=== PATIENT | female | born 1995 | race Caucasian/White ===

== ENCOUNTER → 2018-09-25 10:52 | Outpatient (CLI) | payer BC, SELFPAY ==
[2018-09-25 11:00] LABS: Bacteria 0 SEEN /hpf (None Seen); Mucous, Urine 0 SEEN /hpf (<or=2+); White Blood Cells 0 SEEN /hpf (0-5)
[2018-09-25 12:37] LABS: Absolute Lymphocyte Count 1.73 X10^3/ul (0.83-4.51); Absolute Neutrophil Count 5.6 X10^3/uL (2.0-7.7); Basophil# 0.03 X10^3/uL; Basophil% 0.4 % (0-1); Eosinophil# 0.14 X10^3/uL; Eosinophils% 1.7 % (0-5); Hematocrit 37.5 % (37-47); Hemoglobin 13.5 g/dl (12.0-15.0); Lymphocyte # 1.73 X10^3/ul (4.0); Lymphocyte % 21.2 % (19-41); Mean Corpuscular Hgb 28.5 pg (27.0-32.0); Mean Corpuscular Volume 79.3 fL (81-99); Mean Platelet Vol. 10.7 fl (6.2-12.0); Monocyte# 0.62 X10^3/uL; Monocyte% 7.6 % (0-10); Neutrophil # 5.62 X10^3/uL (2.7-7.7); Neutrophil % 68.7 % (47-70); Platelet Count 330 K/mm3 (150-450); RBC Distribution Width CV 13.5 % (11.6-14.6); RBC Distribution Width SD 38.4 fl (35.1-43.9); Red Blood Count 4.73 M/mm3 (4.2-5.4); White Blood Count 8.2 K/mm3 (4.4-11.0)
[2018-09-25 12:40] LABS: Differential Indicated SCAN CRITERIA MET; POSITIVE COUNT NO; POSITIVE DIFFERENTIAL NO; POSITIVE MORPHOLOGY YES
[2018-09-25 12:56] LABS: Color, Urine Yellow (Yellow); Glucose, Dipstick 1000 mg/dl (Normal); Ketone-Dipstick 5 mg/dl (Negative); Leukocyte Esterase-Dipstick Negative /ul (Negative); Nitrite-Dipstick Negative (Negative); Occult Blood-Urine 10 /ul (Negative); Protein-Dipstick 100 mg/dl (Negative); Urine Bilirubin Dipstick Negative (Negative); Urine Clarity Sl. Cloudy (Clear); Urine Urobilinogen Normal (Normal)
[2018-09-25 12:59] LABS: Hemoglobin A1c 10.9 % (4.2-6.3)
[2018-09-25 13:03] LABS: Microcytosis 1+; Squamous Epithelial Cells - UA 0-5 SEEN /hpf (5-10)
[2018-09-25 13:04] LABS: Atypical Lymphocyte 1+ %; Red Blood Cells-Urine 0-5 SEEN /hpf (0-5)
[2018-09-25 13:18] LABS: Vitamin D,25 Hydroxy 6.8 ng/mL (29.95-100.01)
[2018-09-25 13:37] LABS: Microalbumin:Creatinine Ratio 1057.8 mg/g CRE (<30 mg/g CRE)
[2018-09-25 13:58] LABS: ALB/GLOB Ratio 0.7 RATIO (0.9-2.4); AST(SGOT) 112 U/L (15-37); Alanine Aminotransfer ALT/SGPT 93 U/L (13-56); Albumin, Serum 3.4 g/dL (3.2-5.0); Alkaline Phosphatase 71 U/L (45-117); Anion Gap 14 (5-15); BUN 12 mg/dL (7-18); BUN/Creat Ratio 17.7 RATIO (10-20); Calcium,Total 8.6 mg/dL (8.5-10.1); Chloride 96 mmol/L (98-107); Cholesterol 424 mg/dL (200); Creatinine, Serum 0.68 mg/dL (0.55-1.02); EST Glomerular Filtration Rate 117 mL/min (>60); Est Glom Filt Rate - Afr Amer 141 mL/min (>60); Globulin 4.8 g/dL (2.2-4.2); Glucose 261 mg/dL (74-106); High Density Lipoprotein 28 mg/dL; Potassium 3.7 mmol/L (3.5-5.1); Protein, Total 8.2 g/dL (6.4-8.2); Sodium Level 133 mmol/L (136-145); T4 Free Direct 0.99 ng/dL (0.76-1.46); Thyroid Stim Hormone (TSH) 1.29 uIU/mL (0.358-3.74); Triglycerides > 4000 mg/dL
[2018-09-27 07:39] LABS: Anti-Thyroglobulin AB < 1.0 IU/mL (0.0-0.9); Thyroglobulin, Serum Qt. 15.5 ng/mL (1.5-38.5); Thyroid Peroxidase AB 21 IU/mL (0-34)
--- OUTSIDE RECORDS SUMMARY | 2018-11-11 11:53 | XMS RPT_ITS ---
:1995 Author Organization [facility] Care Team Providers Name Role Phone Bahman Gilliam Attending Unavailable Bahman Gilliam Primary Care Unavailable Bahman Gilliam Attending Unavailable Bahman Gilliam Referring Unavailable Bahman Gilliam Primary Care Unavailable Bahman Gilliam Attending Unavailable Bahman Gilliam Primary Care Unavailable Bahman Gilliam Attending Unavailable Bahman Gilliam Referring Unavailable Bahman Gilliam Primary Care Unavailable PROBLEMS PROBLEMS DATE TYPE CONDITION / CODE ATTENDING STATUS SOURCE 10/11/2018 Unknown R71.8 - Other Bahman Gilliam abnormality of E [facility] red blood cells / Hospital R71.8(ICD-10) Repository PROCEDURES PROCEDURES No Procedure Records FoundRESULTS RESULTS GASTRIC EMPTYING Observed: 10/05/2018 Status: F Source: [place] ST[place] 10:03 AM [facility] REPOSITORY [facility] Imaging Services [address] [place] [address] Gastric Emptying Study MR#: [id number] Acct: [id number] Name: TONIA CERVANTES Rep #: [id number] : 1995 F 22 From: Miguelangel Elias DO PCP: Bahman Gilliam MD Status: REG CLI Study: Gastric Emptying Study Date of Exam: 10/05/18 Exam# [id number] Ordering Dr: Bahman Gilliam MD CLINICAL: 22-year-old diabetic female with reported history of abdominal pain. SEMI-SOLID PHASE 99m Tc SULFUR COLLOID GASTRIC EMPTYING STUDY COMPARISON: None available FINDINGS: The patient was administered 1.1 mCi of 99m Tc sulfur colloid mixed with oatmeal and consumed per os. Image acquisitions in the anterior-posterior projections for a total of 60 minutes. There is prompt visualization of the stomach. There is no gastroesophageal reflux identified. First order kinetics are maintained throughout the duration of the acquisitions. The T1/2 linear fit was calculated to be 78.44 minutes, (Normal: 12-56 minutes). NM/Gastric Emptying Study IMPRESSION: 1. ABNORMAL 99m Tc sulfur colloid semi-solid phase (oatmeal) gastric emptying imaging examination. A. There is delayed semi-solid phase gastric emptying compared to normal controls. (Mony souza al, J Nucl Med Tech 38: 186, 2010). Electronically Signed: Miguelangel Elias DO at 22:06 EST Tel , Service support , CC: Bahman Gilliam MD Parking Lot Supervisor: Signed THYROID Observed: 09/29/2018 Status: F Source: [place] 9:00 AM [facility] REPOSITORY [facility] Imaging Services [address] [place] [address] Thyroid MR#: [id number] Acct: [id number] Name: TONIA CERVANTES Rep #: [id number] : 1995 F 22 From: Zackery Robbins MD PCP: Bahman Gilliam MD Status: REG CLI Study: Thyroid Date of Exam: 09/29/18 Exam# [id number] Ordering Dr: Bahman Gilliam MD STUDY: THYROID ULTRASOUND REASON FOR EXAM: Female, 22 years old. Thyroid enlargement TECHNIQUE: Ultrasound evaluation of the thyroid was performed with real-time and static perkins-scale imaging. COMPARISON: None. FINDINGS: RIGHT LOBE: The right lobe of the thyroid gland measures 4.4 x 1.5 x 1.6 cm. There is a homogeneous echotexture. There are no demonstrated solid, cystic or complex lesions. LEFT LOBE: The left lobe of the thyroid gland measures 4.1 x 1.6 x 0.9 cm. There is a homogeneous echotexture. There are no demonstrated solid, cystic or complex lesions. ISTHMUS: The isthmus measures 3.0 mm. Round, smoothly marginated hypoechoic nodule of the isthmus measures 6 mm without detectable microcalcifications or vascular flow. The regional lymph nodes are normal. US/Thyroid IMPRESSION: 1. Solitary 6 mm hypoechoic nodule the isthmus without suspicious sonographic features. Follow-up ultrasound in 6-12 months recommended. Electronically Signed: Zackery Robbins MD at 9:14 EST , Service support , CC: Bahman Gilliam MD Parking Lot Supervisor: Signed IRON BINDING Collected: 09/28/2018 Status: F Source: [facility] 8:44 AM [facility] REPOSITORY TYPE CODE TESTS RESULT OUT OF RANGE REFERENCE UNITS LAB L503.6075 250-450 ug/dL Normal TIBC 373 Result Comment: Slight Hemolysis, Result may be falsely increased. Performed By: #### L503.6075, L503.6150, L503.6550 #### [facility] [address] [place], [place], [address] IRON Collected: 09/28/2018 Status: F Source: [place] 8:44 AM [facility] REPOSITORY TYPE CODE TESTS RESULT OUT OF RANGE REFERENCE UNITS LAB L503.6150 50-170 ug/dL Normal IRON 85 Result Comment: Slight Hemolysis, Result may be falsely increased. Performed By: #### L503.6075, L503.6150, L503.6550 #### [facility] [address] [facility] [place], [address] FERRITIN Collected: 09/28/2018 Status: F Source: [place] 8:44 AM [facility] REPOSITORY TYPE CODE TESTS RESULT OUT OF REFERENCE UNITS RANGE LAB L503.6550 8-252 ng/mL High FERRITIN 475 Performed By: #### L503.6075, L503.6150, L503.6550 #### [facility] [address] [place], [address] INSULIN Collected: 09/28/2018 Status: F Source: [place] 8:44 AM [facility] REPOSITORY TYPE CODE TESTS RESULT OUT OF RANGE REFERENCE UNITS LAB [id number] 2.6-37.6 mU/L Normal Insulin 15.2 Result Comment: Please Note: INSULIN METHOD AND REFERENCE RANGE CHANGE Effective 10/26/2017. Performed By: #### [id number] #### [facility] [address] [facility] [place], [address] CBC W/DIFF, AUTOMATED Collected: 09/25/2018 Status: F Source: [place] 10:58 AM [facility] REPOSITORY TYPE CODE TESTS RESULT OUT OF RANGE REFERENCE UNITS LAB L100.1000 4.4-11.0 K/mm3 Normal WBC 8.2 LAB L100.1200 4.2-5.4 M/mm3 Normal RBC 4.73 LAB L100.1300 12.0-15.0 g/dl Normal HGB 13.5 LAB L100.1400 37-47 % Normal HCT 37.5 LAB L100.1500 81-99 fL Low MCV 79.3 LAB L100.1600 27.0-32.0 pg Normal MCH 28.5 LAB L100.1700 32-36 g/gl Normal MCHC 36.0 LAB L100.1810 11.6-14.6 % Normal RDW CV 13.5 LAB L100.1820 35.1-43.9 fl Normal RDW SD 38.4 LAB L100.1900 150-450 K/mm3 Normal PLT 330 LAB L100.2000 6.2-12.0 fl Normal MPV 10.7 LAB L100.2100 47-70 % Normal NEUT% 68.7 LAB L100.2200 19-41 % Normal LY% 21.2 LAB L100.2300 0-10 % Normal MONO% 7.6 LAB L100.2400 0-5 % Normal EO% 1.7 LAB L100.2500 0-1 % Normal BASO% 0.4 LAB L100.2550 0.0-0.9 % Normal IM GRAN % 0.400 Result Comment: IG% - Immature Granulocytes (promyelocytes, myelocytes and metamyelocytes) > 1% indicates that a LEFT SHIFT is Present. LAB L100.2620 2.0-7.7 X10 3/uL Absolute Normal Neut 5.6 LAB L100.2720 0.83-4.51 X10 3/ul Absolute Normal Lymph 1.73 LAB L100.4600 % ATYPICAL Normal LYMPH 1+ LAB L100.7700 Normal MICROCYTES 1+ Performed By: #### L100.0100, L501.9985, L506.1000, L502.0250, L500.4050, L500.4100, L501.9520, L506.0400 #### [facility] [address] [facility] [place], [place], [id number] HEMOGLOBIN A1C Collected: 09/25/2018 Status: F Source: [place] 10:58 AM [facility] REPOSITORY TYPE CODE TESTS RESULT OUT OF RANGE REFERENCE UNITS LAB L501.9985 4.2-6.3 % High HGB A1C 10.9 Performed By: #### L100.0100, L501.9985, L506.1000, L502.0250, L500.4050, L500.4100, L501.9520, L506.0400 #### [facility] [address] [place], [place], [address] VITAMIN D,25 HYDROXY Collected: 09/25/2018 Status: F Source: [place] 10:58 [facility] REPOSITORY Order Comment: SPECIMEN IS MARKEDLY LIPEMIC. ULTRACENTRIFUGATION TECHNIQUE USED FOR ANALYSIS. TYPE CODE TESTS RESULT OUT OF REFERENCE UNITS RANGE LAB L506.1000 29.95-100.01 ng/mL Low Vitamin D 6.8 25-OH Result Comment: Vitamin D 25(OH) Status Range Deficiency <20 ng/mL (50nmol/L) Insuffciency 20 - 30 ng/mL (50 - 75 nmol/L) Sufficiency 30 - 100 ng/mL (75 - 250 nmol/L) Toxicity >100 ng/mL (>250 nmol/L) Performed By: #### L100.0100, L501.9985, L506.1000, L502.0250, L500.4050, L500.4100, L501.9520, L506.0400 #### [facility] [address] [place], [address] MICROALB:CREAT Collected: 09/25/2018 Status: F Source: [place] [facility] 10:58 AM [facility] REPOSITORY TYPE CODE TESTS RESULT OUT OF RANGE REFERENCE UNITS LAB L501.1200 NO RANGE EST. mg/dL Normal UR CREAT 121.00 LAB L502.0500 NO RANGE EST. mg/L Normal 1280.0 MICROALBUMIN ,UR LAB L502.0600 <30 mg/g CRE mg/g CRE High 1057.8 MALB:CREAT Performed By: #### L100.0100, L501.9985, L506.1000, L502.0250, L500.4050, L500.4100, L501.9520, L506.0400 #### [facility] [address] [place], [address] COMPREHENSIVE METABOLIC Collected: 09/25/2018 Status: F Source: [place] 10:58 AM [facility] REPOSITORY Order Comment: SPECIMEN IS MARKEDLY LIPEMIC. ULTRACENTRIFUGATION TECHNIQUE USED FOR ANALYSIS. TYPE CODE TESTS RESULT OUT OF RANGE REFERENCE UNITS LAB L501.0100 74-106 mg/dL High GLU 261 Result Comment: Moderate Lipemia, Result may be falsely increased. Glucose result greater than or equal to 200 mg/dL suggests DIABETES MELLITUS per A.D.A. criteria. Please note revised GLUCOSE reference range effective 2017. LAB L501.1000 7-18 mg/dL Normal BUN 12 LAB L501.1100 0.55-1.02 mg/dL Normal CREAT,SERUM 0.68 Result Comment: The validity of the calculated GFR AND GFRAA in patients over 70 years has not been determined. Clinical correlation is essential. LAB L501.1110 >60 mL/min Normal EST GFR 117 Result Comment: Non- GFR Calc LAB L501.1115 >60 mL/min Normal EST GFR - AA 141 Result Comment: GFR Calc LAB L501.1300 10-20 RATIO Normal BUN/CRE 17.7 LAB L501.1500 6.4-8.2 g/dL T Normal PROT 8.2 LAB L501.1800 3.2-5.0 g/dL Normal ALB 3.4 LAB L501.1950 2.2-4.2 g/dL High GLOB 4.8 LAB L501.2000 0.9-2.4 RATIO Low A/G 0.7 LAB L501.2200 8.5-10.1 mg/dL CA Normal 8.6 LAB L501.4100 15-37 U/L High AST 112 LAB L501.4305 45-117 U/L Normal ALK P 71 LAB L501.4405 13-56 U/L High ALT 93 LAB L501.4600 0.20-1.00 mg/dL T Normal BILI 0.70 LAB L501.5300 136-145 mmol/L Low NA 133 LAB L501.5600 3.5-5.1 mmol/L K Normal 3.7 Result Comment: Moderate Hemolysis, Result may be falsely increased. LAB L501.5900 98-107 mmol/L Low CL 96 LAB L501.6100 21.0-32.0 mmol/L Normal CO2 23.0 LAB L501.6200 5-15 Normal GAP 14 Performed By: #### L100.0100, L501.9985, L506.1000, L502.0250, L500.4050, L500.4100, L501.9520, L506.0400 #### [facility] [address] [place], [place], [id number] LIPID PROFILE Collected: 09/25/2018 Status: F Source: [place] 10:58 AM [facility] REPOSITORY Order Comment: SPECIMEN IS MARKEDLY LIPEMIC. ULTRACENTRIFUGATION TECHNIQUE USED FOR ANALYSIS. TYPE CODE TESTS RESULT OUT OF RANGE REFERENCE UNITS LAB L501.4900 200 mg/dL High CHOL 424 Result Comment: <200 mg/dL Desirable 200-240 mg/dL Borderline >240 mg/dL High Risk LAB L501.5000 mg/dL High TRIG > 4000 Result Comment: The drugs N-Acetylcysteine and Metamizole may falsely depress this assay. Serum Triglycerides Reference Interval Normal <150 mg/dL Borderline high 150 - 199 mg/dL High 200 - 499 mg/dL Very High > or = 500 mg/dL LAB L501.6400 mg/dL Low HDL 28 Result Comment: The drugs N-Acetylcysteine and Metamizole may falsely depress this assay. Reference Range HDL <40 mg/dL Low HDL Cholesterol HDL >or= 60 mg/dL High HDL Cholesterol LAB L501.6500 0-130 mg/dL Test Normal not performed LDL LAB L501.6600 5-40 mg/dL Test Normal not performed VLDL Performed By: #### L100.0100, L501.9985, L506.1000, L502.0250, L500.4050, L500.4100, L501.9520, L506.0400 #### [facility] [address] [facility] [place], [place], [address] THYROID STIM HORMONE Collected: 09/25/2018 Status: F Source: [place] ([facility]) 10:58 AM [facility] REPOSITORY Order Comment: SPECIMEN IS MARKEDLY LIPEMIC. ULTRACENTRIFUGATION TECHNIQUE USED FOR ANALYSIS. TYPE CODE TESTS RESULT OUT OF RANGE REFERENCE UNITS LAB L501.9520 0.358-3.74 uIU/mL Normal TSH 1.29 Performed By: #### L100.0100, L501.9985, L506.1000, L502.0250, L500.4050, L500.4100, L501.9520, L506.0400 #### [facility] [address] [place], [place], [id number] T4 FREE DIRECT Collected: 09/25/2018 Status: F Source: [place] 10:58 AM [facility] REPOSITORY Order Comment: SPECIMEN IS MARKEDLY LIPEMIC. ULTRACENTRIFUGATION TECHNIQUE USED FOR ANALYSIS. TYPE CODE TESTS RESULT OUT OF RANGE REFERENCE UNITS LAB L506.0400 0.76-1.46 ng/dL Normal T4 FREE 0.99 DIRECT Performed By: #### L100.0100, L501.9985, L506.1000, L502.0250, L500.4050, L500.4100, L501.9520, L506.0400 #### [facility] [address] [place], [place], [address] URINALYSIS, COMPLETE Collected: 09/25/2018 Status: F Source: [place] 10:58 AM [facility] REPOSITORY Order Comment: How was Urine Obtained? CLEAN CATCH TYPE CODE TESTS RESULT OUT OF RANGE REFERENCE UNITS LAB L400.3000 Yellow COLOR Normal Yellow LAB L400.3050 Clear Normal CLARITY Sl. Cloudy LAB L400.3200 Normal mg/dl High GLUCOSE, UR 1000 LAB L400.3300 Negative mg/dL Normal BILIRUBIN URINE Negative LAB L400.3400 Negative mg/dl High 5 KETONE UR LAB L400.3465 1.002-1.030 Normal SP.GR. DIPSTX 1.020 LAB L400.3550 5.0 - 8.0 pH UR Normal 5.0 LAB L400.3600 Negative mg/dl High PROT DIPSTX 100 LAB L400.3700 Normal mg/dl Normal UROBILI Normal LAB L400.3750 Negative Normal NITRITE UR Negative LAB L400.3780 Negative /ul High 10 OCCULT BLOOD-UR LAB L400.3800 Negative /ul LEUK Normal ESTERASE Negative LAB L400.4050 0-5 /hpf WBC 0 Normal SEEN LAB L400.4100 0-5 /hpf Normal RBC-UA 0-5 SEEN LAB L400.4150 5-10 /hpf SQUAM Normal EPI 0-5 SEEN LAB L400.4300 None Seen /hpf 0 Normal BACTERIA SEEN LAB L400.4350 <or=2+ /hpf 0 Normal MUCUS, URINE SEEN Performed By: #### L400.0001 #### [facility] [address] [place], [place], [id number] THYROGLOBULIN W/ANTI-TG Collected: 09/25/2018 Status: F Source: [place] 10:58 AM [facility] REPOSITORY TYPE CODE TESTS RESULT OUT OF RANGE REFERENCE UNITS LAB L3300.7025 0.0-0.9 IU/mL Normal ANTI-TG < 1.0 AB Result Comment: Thyroglobulin Antibody measured by [facility] LAB L3400.1030 1.5-38.5 ng/mL Normal THYROGLOB 15.5 Result Comment: According to the National Academy of Clinical Biochemistry, the reference interval for Thyroglobulin (TG) should be related to euthyroid patients and not for patients who underwent thyroidectomy. TG reference intervals for these patients depend on the residual mass of the thyroid tissue left after surgery. Establishing a post-operative baseline is recommended. The assay limit of quantitation is 0.1 ng/mL Thyroglobulin measured by [facility] Assay Performed By: #### L3300.6820, L3300.6900 #### [facility] (refer to report for specific site) refer to report for address and phone number THYROID PEROXIDASE AB Collected: 09/25/2018 Status: F Source: [place] 10:58 AM [facility] REPOSITORY TYPE CODE TESTS RESULT OUT OF RANGE REFERENCE UNITS LAB L3300.6900 0-34 IU/mL Normal TPO AB 21 6676 Result Comment: Performed at: [address] [id number] Fiber Machine Tender: Mandeep Brown PhD, Phone: [phone] Performed By: #### L3300.6820, L3300.6900 #### [facility] (refer to report for specific site) refer to report for address and phone number ALLERGIES ALLERGIES No Allergies Records FoundENCOUNTERS ENCOUNTERS ADMIT/DISCHARGE ACCOUNT ADMITTING ENCOUNTER LOCATION SOURCE NUMBER CLASS 10/05/2018 [id number] Amb[place] [facility] ing:[place] Repository 09/29/2018 [id number] Ambulatory [facility] ing: Repository 09/28/2018 [id number] [place] [facility] ing:MFPLAB Repository 09/25/2018 [id number] Ambulatory [facility] ing:MFPLAB Repository PAYERS PAYERS ENCOUNTER GUARANTOR PAYER SUBSCRIBER SOURCE 10/05/2018 [facility]HEMPolic [facility] [employer] [facility] y Number[facility] [id number] [facility] [place] [id number] Repository [address]Zzr: [phone]) Date:5083-69-58YA [phone] () AJIT ZAPATA [address]GT: 10/05/2018 Secondary NOT GIVENUNK [place] Insurance:SELF PAY [facility] Number: Effective Repository Date:2018-10-03 09/29/2018 TONIA Ward Primary STEVEN Haynes [id number] Insurance:ANTHEMPolic MILLINESDOB: Community PRETTY LNAPT y Number: [id number] [id number] Repository [address]Gkr: ([phone]) Date:0538-50-53TV [phone] () [id number] GAY [address]WS: 09/29/2018 Secondary NOT GIVENUNK [place] Insurance:SELF PAY [facility] Number: Effective Repository Date:2018-09-25 09/28/2018 TONIA Ward Primary STEVEN [place] [id number] Insurance:ANTHEMPolic MILLINESDOB: Community PRETTY LNAPT y Number: [id number] [id number] Repository [address]Oaz: ([phone]) Date:8727-88-75PQ [phone] () AJIT ZAPATA [address]GE: 09/28/2018 Secondary NOT GIVENUNK [place] Insurance:SELF PAY [facility] Number: Effective Repository Date:2018-09-28 09/25/2018 Tonia Primary STEVEN Haynes [id number] Insurance:ANTHEMPolic MILLINESUNK Community Pretty y Number: [place], [place] [id number] Repository [address]Kiq: [phone]) Date:3549-07-26KH [phone] () [id number] GAY [address]846XT: 09/25/2018 Secondary NOT GIVENUNK [place] Insurance:SELF PAY [facility] Number: Effective Repository Date:2018-09-25
== END ==
PROVIDERS: Family Provider Family Medicine; PCP Family Medicine; Visit Provider Family Medicine
DX: I10 Essential (primary) hypertension (principal); E11.9 Type 2 diabetes mellitus without complications; E01.0 Iodine-deficiency related diffuse (endemic) goiter; E78.5 Hyperlipidemia, unspecified; E55.9 Vitamin D deficiency, unspecified
CPT/HCPCS: 36415; 80053; 80061; 81001; 82043; 82306; 82570; 83036; 84432; 84439; 84443; 85025; 86376; 86800

== ENCOUNTER → 2018-09-28 08:42 | Outpatient (CLI) | payer BC, SELFPAY ==
[2018-09-28 11:12] LABS: Ferritin 475 ng/mL (8-252); Iron 85 ug/dL (50-170); Iron Binding Capacity,Total 373 ug/dL (250-450)
[2018-09-28 15:15] LABS: Insulin 15.2 mU/L (2.6-37.6)
--- OUTSIDE RECORDS SUMMARY | 2018-11-13 21:14 | XMS RPT_ITS ---
[...] Status: F Source: [place] ST[place] 10:03 AM [facility] REPOSITORY Imaging Services [address] [place] [address] Gastric Emptying Study MR#: [id number] Acct: [id number] Name: TONIA CERVANTES Rep #: [id number] : 1995 F 22 From: Miguelangel Elias DO PCP: Bahman Gilliam MD Status: REG CLI Study: Gastric Emptying Study Date of Exam: 10/05/18 Exam# [id number] Ordering Dr: Bahman Gilliam MD CLINICAL: 22-year-old [...] Service support , CC: Bahman Gilliam MD Social Work Job Titles: Signed THYROID Observed: 09/29/2018 Status: F Source: [place] 9:00 AM [facility] REPOSITORY Imaging Services [address] [place] [address] Thyroid MR#: [id number] Acct: [id number] Name: TONIA CERVANTES Rep #: [id number] : 1995 F 22 From: Zackery Robbins MD PCP: Bahman Gilliam MD Status: REG CLI Study: Thyroid Date of Exam: 09/29/18 Exam# [id number] Ordering Dr: Bahman Gilliam MD STUDY: THYROID [...] Service support , CC: Bahman Gilliam MD Social Work Job Titles: Signed IRON BINDING Collected: 09/28/2018 Status: F Source: [facility],TOTAL 8:44 AM [facility] REPOSITORY TYPE CODE TESTS RESULT OUT OF RANGE REFERENCE UNITS LAB L503.6075 250-450 ug/dL Normal TIBC 373 Result Comment: Slight Hemolysis, Result may be falsely increased. Performed By: #### L503.6075, L503.6150, L503.6550 #### [facility] [address] [place], [place], [address] IRON Collected: 09/28/2018 Status: F Source: [place] 8:44 AM [facility] REPOSITORY TYPE CODE TESTS RESULT OUT OF RANGE REFERENCE UNITS LAB L503.6150 50-170 ug/dL Normal IRON 85 Result Comment: Slight Hemolysis, Result may be falsely increased. Performed By: #### L503.6075, L503.6150, L503.6550 #### [facility] [address] [place], [address] FERRITIN Collected: 09/28/2018 Status: F Source: [place] 8:44 AM [facility] REPOSITORY TYPE CODE TESTS RESULT OUT OF REFERENCE UNITS RANGE LAB L503.6550 8-252 ng/mL High FERRITIN 475 Performed By: #### L503.6075, L503.6150, L503.6550 #### [facility] [address] [place], [address] INSULIN Collected: 09/28/2018 Status: F Source: [place] 8:44 AM [facility] REPOSITORY TYPE CODE TESTS RESULT OUT OF RANGE REFERENCE UNITS LAB [id number] 2.6-37.6 mU/L Normal Insulin 15.2 Result Comment: Please Note: INSULIN METHOD AND REFERENCE RANGE CHANGE Effective 10/26/2017. Performed By: #### [id number] #### [facility] [address] [place], [address] CBC W/DIFF, AUTOMATED Collected: 09/25/2018 Status: F Source: [place] 10:58 AM [facility] REPOSITORY TYPE CODE TESTS RESULT OUT OF [...] L506.1000, L502.0250, L500.4050, L500.4100, L501.9520, L506.0400 #### [facility] [address] [place], [place], [address] HEMOGLOBIN A1C Collected: 09/25/2018 Status: F Source: [place] 10:58 AM [facility] REPOSITORY TYPE CODE TESTS RESULT OUT OF RANGE REFERENCE UNITS LAB L501.9985 4.2-6.3 % High HGB A1C 10.9 Performed By: #### L100.0100, L501.9985, L506.1000, L502.0250, L500.4050, L500.4100, L501.9520, L506.0400 #### [facility] [address] [place], [place], [address] VITAMIN D,25 HYDROXY Collected: 09/25/2018 Status: F Source: [place] 10:58 [facility] REPOSITORY Order Comment: SPECIMEN IS MARKEDLY LIPEMIC. [...] L506.1000, L502.0250, L500.4050, L500.4100, L501.9520, L506.0400 #### [facility] [address] [place], [address] MICROALB:CREAT Collected: 09/25/2018 Status: F Source: [place] [facility] 10:58 AM [facility] REPOSITORY TYPE CODE TESTS RESULT OUT OF RANGE REFERENCE UNITS LAB L501.1200 NO RANGE EST. mg/dL Normal UR CREAT 121.00 LAB L502.0500 NO RANGE EST. mg/L Normal 1280.0 MICROALBUMIN ,UR LAB L502.0600 <30 mg/g CRE mg/g CRE High 1057.8 MALB:CREAT Performed By: #### L100.0100, L501.9985, L506.1000, L502.0250, L500.4050, L500.4100, L501.9520, L506.0400 #### [facility] [address] [place], [address] COMPREHENSIVE METABOLIC Collected: 09/25/2018 Status: F Source: [place] PROFIL 10:58 AM [facility] REPOSITORY Order Comment: SPECIMEN IS MARKEDLY LIPEMIC. [...] L506.1000, L502.0250, L500.4050, L500.4100, L501.9520, L506.0400 #### [facility] [address] [place], [place], [address] LIPID PROFILE Collected: 09/25/2018 Status: F Source: [place] 10:58 AM [facility] REPOSITORY Order Comment: SPECIMEN IS MARKEDLY LIPEMIC. [...] L506.1000, L502.0250, L500.4050, L500.4100, L501.9520, L506.0400 #### [facility] [address] [place], [place], [address] THYROID STIM HORMONE Collected: 09/25/2018 Status: F Source: [place] (TSH) 10:58 AM [facility] REPOSITORY Order Comment: SPECIMEN IS MARKEDLY LIPEMIC. ULTRACENTRIFUGATION TECHNIQUE USED FOR ANALYSIS. TYPE CODE TESTS RESULT OUT OF RANGE REFERENCE UNITS LAB L501.9520 0.358-3.74 uIU/mL Normal TSH 1.29 Performed By: #### L100.0100, L501.9985, L506.1000, L502.0250, L500.4050, L500.4100, L501.9520, L506.0400 #### [facility] [address] [place], [place], [address] T4 FREE DIRECT Collected: 09/25/2018 Status: F Source: [place] 10:58 AM [facility] REPOSITORY Order Comment: SPECIMEN IS MARKEDLY LIPEMIC. ULTRACENTRIFUGATION TECHNIQUE USED FOR ANALYSIS. TYPE CODE TESTS RESULT OUT OF RANGE REFERENCE UNITS LAB L506.0400 0.76-1.46 ng/dL Normal T4 FREE 0.99 DIRECT Performed By: #### L100.0100, L501.9985, L506.1000, L502.0250, L500.4050, L500.4100, L501.9520, L506.0400 #### [facility] [address] [place], [place], [address] URINALYSIS, COMPLETE Collected: 09/25/2018 Status: F Source: [place] 10:58 AM [facility] REPOSITORY Order Comment: How was Urine Obtained? [...] URINE SEEN Performed By: #### L400.0001 #### [facility] [address] [place], [place], [address] THYROGLOBULIN W/ANTI-TG Collected: 09/25/2018 Status: F Source: [place] AB 10:58 AM [facility] REPOSITORY TYPE CODE TESTS RESULT OUT OF RANGE REFERENCE UNITS LAB L3300.7025 0.0-0.9 IU/mL Normal ANTI-TG < 1.0 AB Result Comment: Thyroglobulin Antibody measured by [employer] [place] Methodology LAB L3400.1030 1.5-38.5 ng/mL Normal THYROGLOB [...] 09/25/2018 Status: F Source: [place] 10:58 AM [facility] REPOSITORY TYPE CODE TESTS RESULT OUT OF RANGE REFERENCE UNITS LAB L3300.6900 0-34 IU/mL Normal TPO AB 21 6676 Result Comment: Performed at: [address] [id number] Dirt Bike Racer: Mandeep Brown PhD, Phone: [phone] Performed By: #### L3300.6820, L3300.6900 #### [facility] (refer to report for specific site) refer to report for address and phone number ALLERGIES ALLERGIES No Allergies Records FoundENCOUNTERS ENCOUNTERS ADMIT/DISCHARGE ACCOUNT ADMITTING ENCOUNTER LOCATION SOURCE NUMBER CLASS 10/05/2018 [id number] [place] [facility] ing:[place] Repository 09/29/2018 [id number] Ambulatory [facility] 5 [facility] ing: Repository 09/28/2018 [id number] Ambulatory [place] 4 [facility] ing:MFPLAB Repository 09/25/2018 [id number] Ambulatory [facility] 4 [facility] ing:MFPLAB Repository PAYERS PAYERS ENCOUNTER GUARANTOR PAYER SUBSCRIBER SOURCE 10/05/2018 [facility]ANTHEMPolic [facility] [employer] [facility] y Number: [id number] [facility] [place] [id number] Repository [address]Kxz: [phone]) Date:7821-06-17RA [phone] () AJIT [place]AP[place] [address]JZ: 10/05/2018 Secondary NOT GIVENUNK [place] Insurance:SELF PAY [facility] Number: Effective Repository Date:2018-10-03 09/29/2018 TONIA Ward Primary STEVEN Haynes [id number] Insurance:ANTHEMPolic MILLINESDOB: Community PRETTY LNAPT y Number: [id number] [id number] Repository [address]Wsa: (225) Date:6287-29-01GX [phone] () [id number] GAY [address]FG: 09/29/2018 Secondary NOT GIVENUNK [place] Insurance:SELF PAY Community [facility] Number: Effective Repository Date:2018-09-25 09/28/2018 TONIA Ward Primary STEVEN Ordoñezoster [id number] Insurance:ANTHEMPolic MILLINESDOB: Community PRETTY LNAPT y Number: [id number] [id number] Repository [address]Krj: (225) Date:4157-60-35KN [phone] () AJIT [place] [address]ZD: 09/28/2018 Secondary NOT GIVENUNK [place] Insurance:SELF PAY Community [facility] Number: Effective Repository Date:2018-09-28 09/25/2018 Tonia Primary STEV[address] [id number] Insurance:ANTHEMPolic MILLINESUNK Community Pretty y Number: [place], [place] [id number] Repository [address]Xmi: (225) Date:3305-58-30HW [phone] () [id number] GAY [address]YV: 09/25/2018 Secondary NOT GIVENUNK [place] Insurance:SELF PAY Community [facility] Number: Effective Repository Date:2018-09-25
== END ==
PROVIDERS: Family Provider Family Medicine; PCP Family Medicine; Visit Provider Family Medicine
DX: R71.8 Other abnormality of red blood cells (principal)
CPT/HCPCS: 36415; 82728; 83525; 83540; 83550

== ENCOUNTER → 2018-09-29 08:54 | Outpatient (CLI) | payer BC, SELFPAY ==
--- NOTE | 2018-09-29 09:00 | US_ITS ---
STUDY: THYROID ULTRASOUND REASON FOR EXAM: Female, 22 years old. Thyroid enlargement TECHNIQUE: Ultrasound evaluation of the thyroid was performed with real-time and static perkins-scale imaging. COMPARISON: None. FINDINGS: RIGHT LOBE: The right lobe of the thyroid gland measures 4.4 x 1.5 x 1.6 cm. There is a homogeneous echotexture. There are no demonstrated solid, cystic or complex lesions. LEFT LOBE: The left lobe of the thyroid gland measures 4.1 x 1.6 x 0.9 cm. There is a homogeneous echotexture. There are no demonstrated solid, cystic or complex lesions. ISTHMUS: The isthmus measures 3.0 mm. Round, smoothly marginated hypoechoic nodule of the isthmus measures 6 mm without detectable microcalcifications or vascular flow. The regional lymph nodes are normal. US/Thyroid IMPRESSION: 1. Solitary 6 mm hypoechoic nodule the isthmus without suspicious sonographic features. Follow-up ultrasound in 6-12 months recommended. Electronically Signed: Zackery Robbins MD at 9:14 EST , Service support ,
--- OUTSIDE RECORDS SUMMARY | 2019-01-02 09:05 | XMS RPT_ITS ---
[...] Status: F Source: [place] ST[place] 10:03 AM [facility] REPOSITORY [facility] Imaging Services [address] [place] [address] Gastric Emptying Study MR#: [id number] Acct: [id number] Name: TONIA CERVANTES Rep #: [id number] : 1995 F 22 From: Miguelangel Elias DO PCP: Bahman Gilliam MD Status: REG CLI Study: Gastric Emptying Study Date of Exam: 10/05/18 Exam# [id number] Ordering Dr: Bahman Gilliam MD CLINICAL: 22-year-old [...] Service support , CC: Bahman Gilliam MD Swimming Pool Cleaner: Signed THYROID Observed: 09/29/2018 Status: F Source: [place] 9:00 AM [facility] Imaging Services [address] [place] [address] Thyroid MR#: [id number] Acct: [id number] Name: TONIA CERVANTES Rep #: [id number] : 1995 F 22 From: Zackery Robbins MD PCP: Bahman Gilliam MD Status: REG CLI Study: Thyroid Date of Exam: 09/29/18 Exam# [id number] Ordering Dr: Bahman Gilliam MD STUDY: THYROID [...] Service support , CC: Bahman Gilliam MD Swimming Pool Cleaner: Signed IRON BINDING Collected: 09/28/2018 Status: F Source: [facility],TOTAL 8:44 AM [facility] TYPE CODE TESTS RESULT OUT OF RANGE REFERENCE UNITS LAB L503.6075 250-450 ug/dL Normal TIBC 373 Result Comment: Slight Hemolysis, Result may be falsely increased. Performed By: #### L503.6075, L503.6150, L503.6550 #### [facility] [address] [place], [place], [address] IRON Collected: 09/28/2018 Status: F Source: [place] 8:44 AM [facility] TYPE CODE TESTS RESULT OUT OF RANGE REFERENCE UNITS LAB L503.6150 50-170 ug/dL Normal IRON 85 Result Comment: Slight Hemolysis, Result may be falsely increased. Performed By: #### L503.6075, L503.6150, L503.6550 #### [facility] [address] [facility] [place], [address] FERRITIN Collected: 09/28/2018 Status: F Source: [place] 8:44 AM [facility] TYPE CODE TESTS RESULT OUT OF REFERENCE UNITS RANGE LAB L503.6550 8-252 ng/mL High FERRITIN 475 Performed By: #### L503.6075, L503.6150, L503.6550 #### [facility] [address] [place], [address] INSULIN Collected: 09/28/2018 Status: F Source: [place] 8:44 AM [facility] TYPE CODE TESTS RESULT OUT OF RANGE REFERENCE UNITS LAB [id number] 2.6-37.6 mU/L Normal Insulin 15.2 Result Comment: Please Note: INSULIN METHOD AND REFERENCE RANGE CHANGE Effective 10/26/2017. Performed By: #### [id number] #### [facility] [address] [facility] [place], [address] CBC W/DIFF, AUTOMATED Collected: 09/25/2018 Status: F Source: [place] 10:58 AM [facility] TYPE CODE TESTS RESULT OUT OF [...] L506.1000, L502.0250, L500.4050, L500.4100, L501.9520, L506.0400 #### [facility] [address] [facility]. [place], [place], [address] HEMOGLOBIN A1C Collected: 09/25/2018 Status: F Source: [place] 10:58 AM [facility] TYPE CODE TESTS RESULT OUT OF RANGE REFERENCE UNITS LAB L501.9985 4.2-6.3 % High HGB A1C 10.9 Performed By: #### L100.0100, L501.9985, L506.1000, L502.0250, L500.4050, L500.4100, L501.9520, L506.0400 #### [facility] [address] [place], [place], [address] VITAMIN D,25 HYDROXY Collected: 09/25/2018 Status: F Source: [place] [facility] Order Comment: SPECIMEN IS MARKEDLY [...] L506.1000, L502.0250, L500.4050, L500.4100, L501.9520, L506.0400 #### [facility] [address] [place], [address] MICROALB:CREAT Collected: 09/25/2018 Status: F Source: [place] [facility] [place] 10:58 AM [facility] TYPE CODE TESTS RESULT OUT OF RANGE REFERENCE UNITS LAB L501.1200 NO RANGE EST. mg/dL Normal UR CREAT 121.00 LAB L502.0500 NO RANGE EST. mg/L Normal 1280.0 MICROALBUMIN ,UR LAB L502.0600 <30 mg/g CRE mg/g CRE High 1057.8 MALB:CREAT Performed By: #### L100.0100, L501.9985, L506.1000, L502.0250, L500.4050, L500.4100, L501.9520, L506.0400 #### [facility] [address] [place], [address] COMPREHENSIVE METABOLIC Collected: 09/25/2018 Status: F Source: [place] PROFIL 10:58 AM [facility] Order Comment: SPECIMEN IS MARKEDLY LIPEMIC. [...] L506.1000, L502.0250, L500.4050, L500.4100, L501.9520, L506.0400 #### [facility] [address] [place], [place], [address] LIPID PROFILE Collected: 09/25/2018 Status: F Source: [place] 10:58 AM [facility] Order Comment: SPECIMEN IS MARKEDLY LIPEMIC. [...] L506.1000, L502.0250, L500.4050, L500.4100, L501.9520, L506.0400 #### [facility] [address] [facility]. [place], [place], [address] THYROID STIM HORMONE Collected: 09/25/2018 Status: F Source: [place] (TSH) 10:58 AM [facility] Order Comment: SPECIMEN IS MARKEDLY LIPEMIC. ULTRACENTRIFUGATION TECHNIQUE USED FOR ANALYSIS. TYPE CODE TESTS RESULT OUT OF RANGE REFERENCE UNITS LAB L501.9520 0.358-3.74 uIU/mL Normal TSH 1.29 Performed By: #### L100.0100, L501.9985, L506.1000, L502.0250, L500.4050, L500.4100, L501.9520, L506.0400 #### [facility] [address] [place], [place], [address] T4 FREE DIRECT Collected: 09/25/2018 Status: F Source: [place] 10:58 AM [facility] Order Comment: SPECIMEN IS MARKEDLY LIPEMIC. ULTRACENTRIFUGATION TECHNIQUE USED FOR ANALYSIS. TYPE CODE TESTS RESULT OUT OF RANGE REFERENCE UNITS LAB L506.0400 0.76-1.46 ng/dL Normal T4 FREE 0.99 DIRECT Performed By: #### L100.0100, L501.9985, L506.1000, L502.0250, L500.4050, L500.4100, L501.9520, L506.0400 #### [facility] [address] [place], [place], [address] URINALYSIS, COMPLETE Collected: 09/25/2018 Status: F Source: [place] 10:58 AM [facility] Order Comment: How was Urine Obtained? [...] URINE SEEN Performed By: #### L400.0001 #### [facility] [address] [place], [place], [address] THYROGLOBULIN W/ANTI-TG Collected: 09/25/2018 Status: F Source: [place] 10:58 AM [facility] TYPE CODE TESTS RESULT OUT OF RANGE REFERENCE UNITS LAB L3300.7025 0.0-0.9 IU/mL Normal ANTI-TG < 1.0 AB Result Comment: Thyroglobulin Antibody measured by [employer] [place] Methodology LAB L3400.1030 1.5-38.5 ng/mL Normal THYROGLOB [...] 09/25/2018 Status: F Source: [place] 10:58 AM [facility] TYPE CODE TESTS RESULT OUT OF RANGE REFERENCE UNITS LAB L3300.6900 0-34 IU/mL Normal TPO AB 21 6676 Result Comment: Performed at: [address] [id number] Member Of Congress: Mandeep Brown PhD, Phone: [phone] Performed By: #### L3300.6820, L3300.6900 #### [facility] (refer to report for specific site) refer to report for address and phone number ALLERGIES ALLERGIES No Allergies Records FoundENCOUNTERS ENCOUNTERS ADMIT/DISCHARGE ACCOUNT ADMITTING ENCOUNTER LOCATION SOURCE NUMBER CLASS 10/05/2018 [id number] [place] [facility] ing:[place] Repository 09/29/[id number] [facility] 5 [facility] ing: Repository 09/28/2018 [id number] Ambulatory [place] 4 [facility] ing:MFPLAB Repository 09/25/[id number] [facility] 4 [facility] ing:MFPLAB Repository PAYERS PAYERS ENCOUNTER GUARANTOR PAYER SUBSCRIBER SOURCE 10/05/2018 [facility]ANTHEMPolic [facility] [place] [facility] y Number: [id number] [place] [id number] Repository [address]Cqh: [phone]) Date:6242-94-77VM [phone] () AJIT [place]AP[place] [address]XJ: 10/05/2018 Secondary NOT GIVENUNK [place] Insurance:SELF PAY Community [facility] Number: Effective Repository Date:2018-10-03 09/29/2018 TONIA Ward Primary [address] [id number] Insurance:ANTHEMPolic MILLINESDOB: Community PRETTY LNAPT y Number: [id number] [id number] Repository [address]Bco: (225) Date:6134-50-53GV [phone] () [id number] GAY [address]BE: 09/29/2018 Secondary NOT GIVENUNK [place] Insurance:SELF PAY Community [facility] Number: Effective Repository Date:2018-09-25 09/28/2018 TONIA Ward Primary STEVEN Ordoñezoster [id number] Insurance:ANTHEMPolic MILLINESDOB: Community PRETTY LNAPT y Number: [id number] [id number] Repository [address]Zbt: (225) Date:0526-20-11XQ [phone] () AJIT [place] [address]BQ: 09/28/2018 Secondary NOT GIVENUNK [place] Insurance:SELF PAY Community [facility] Number: Effective Repository Date:2018-09-28 09/25/2018 Tonia Primary [address] [id number] Insurance:ANTHEMPolic MILLINESUNK Community Pretty y Number: [place], [place] [id number] Repository [address]Lfg: (225) Date:3170-08-60LC [phone] () [id number] GAY [address]VN: 09/25/2018 Secondary NOT GIVENUNK [place] Insurance:SELF PAY Community [facility] Number: Effective Repository Date:2018-09-25
== END ==
PROVIDERS: Family Provider Family Medicine; PCP Family Medicine; Referring Provider Family Medicine; Visit Provider Family Medicine
DX: E01.0 Iodine-deficiency related diffuse (endemic) goiter (principal)
CPT/HCPCS: 76536

== ENCOUNTER → 2018-10-05 09:55 | Outpatient (CLI) | payer BC, SELFPAY ==
--- NOTE | 2018-10-05 10:02 | NM_ITS ---
CLINICAL: 22-year-old diabetic female with reported history of abdominal pain. SEMI-SOLID PHASE 99m Tc SULFUR COLLOID GASTRIC EMPTYING STUDY COMPARISON: None available FINDINGS: The patient was administered 1.1 mCi of 99m Tc sulfur colloid mixed with oatmeal and consumed per os. Image acquisitions in the anterior-posterior projections for a total of 60 minutes. There is prompt visualization of the stomach. There is no gastroesophageal reflux identified. First order kinetics are maintained throughout the duration of the acquisitions. The T1/2 linear fit was calculated to be 78.44 minutes, (Normal: 12-56 minutes). NM/Gastric Emptying Study IMPRESSION: 1. ABNORMAL 99m Tc sulfur colloid semi-solid phase (oatmeal) gastric emptying imaging examination. A. There is delayed semi-solid phase gastric emptying compared to normal controls. (Mony et al, J Nucl Med Tech 38: 186, 2010). Electronically Signed: Miguelangel Elias DO at 22:06 EST Tel , Service support ,
== END ==
LOC: NM 09:57
PROVIDERS: Family Provider Family Medicine; PCP Family Medicine; Referring Provider Family Medicine; Visit Provider Family Medicine
DX: R68.81 Early satiety (principal)
CPT/HCPCS: 78264; A9541

== ENCOUNTER → 2019-03-01 07:49 | Outpatient (CLI) | payer BC, SELFPAY ==
--- NOTE | 2019-03-01 08:14 | US_ITS ---
STUDY: ABDOMINAL ULTRASOUND - RIGHT UPPER QUADRANT REASON FOR VISIT: Female, 23 years old. Fatty liver TECHNIQUE: Ultrasound evaluation of the right upper quadrant was performed with real-time and static perkins-scale imaging. TECHNICAL QUALITY: Adequate. COMPARISON: None. FINDINGS: Liver: The liver measures 21.1 cm. There is increased echogenicity consistent with fatty infiltration. The bile ducts are within normal limits. There is hepatic color flow. The direction of portal flow is hepatopetal. There is no demonstrated mass lesion. Gallbladder: Normal distended gallbladder. The gallbladder wall measures 2.7 mm. There is a negative sonographic Cavanaugh's sign. There is pericholecystic fluid. There are no gallstones. Common Bile Duct (C.B.D.): The common bile duct measures 2.7 mm. Pancreas: Normal size of the head, body and tail of the pancreas. There is normal echogenicity of the pancreas. There is no demonstrated pancreatic mass or cyst. Right Kidney: Normal size of the right kidney. The right kidney measures 12.2 x 6.2 x 5.5 cm. Normal renal cortex. The right cortex measures 1.6 cm. There is no demonstrated renal mass or cyst. There is no right hydronephrosis. US/Liver IMPRESSION: Hepatomegaly and fatty liver. Pericholecystic fluid. No gallstones are seen. Normal common bile duct. Electronically Signed: Tim Luciano MD at 20:05 EDT Tel , Service support ,
== END ==
LOC: US 07:52
PROVIDERS: Family Provider Family Medicine; PCP Family Medicine; Referring Provider Internal Medicine Endocrinology, Diabetes & Metabolism; Visit Provider Internal Medicine Endocrinology, Diabetes & Metabolism
DX: K76.0 Fatty (change of) liver, not elsewhere classified (principal)
CPT/HCPCS: 76705

== ENCOUNTER 2019-04-30 14:04 | Emergency (ER) | payer BC, SELFPAY ==
[2019-04-30 14:05] VITALS: BP 146/87; PULSE 98; RESP 16; TEMP 36.6; O2SAT 98; BMI 31.7
[2019-04-30 15:20] LABS: Absolute Lymphocyte Count 3.02 X10^3/uL (0.83-4.51); Absolute Neutrophil Count 5.4 X10^3/uL (2.0-7.7); Basophil# 0.04 X10^3/uL; Basophil% 0.4 % (0-1); Eosinophil# 0.13 X10^3/uL; Eosinophils% 1.4 % (0-5); Hematocrit 42.6 % (37-47); Hemoglobin 13.9 g/dL (12.0-15.0); Lymphocyte # 3.02 X10^3/ul (4.0); Lymphocyte % 32.9 % (19-41); Mean Corp Hgb Conc 32.6 g/dL (32-36); Mean Corpuscular Hgb 26.5 pg (27.0-32.0); Mean Corpuscular Volume 81.1 fL (81-99); Mean Platelet Vol. 10.1 fl (6.2-12.0); Monocyte% 6.5 % (0-10); NRBC Flagged by Analyzer 0 % (0-5); Neutrophil # 5.35 X10^3/uL (2.7-7.7); Neutrophil % 58.5 % (47-70); Platelet Count 302 K/mm3 (150-450); RBC Distribution Width CV 13.4 % (11.6-14.6); RBC Distribution Width SD 39.8 fl (35.1-43.9); Red Blood Count 5.25 M/mm3 (4.2-5.4); White Blood Count 9.2 K/mm3 (4.4-11.0)
[2019-04-30 15:40] LABS: ALB/GLOB Ratio 1.1 RATIO (0.9-2.4); AST(SGOT) 55 U/L (15-37); Alanine Aminotransfer ALT/SGPT 83 U/L (13-56); Albumin, Serum 4.3 g/dL (3.2-5.0); Alkaline Phosphatase 55 U/L (45-117); Anion Gap 6 (5-15); BUN 11 mg/dL (7-18); BUN/Creat Ratio 15.7 RATIO (10-20); Calcium,Total 9.6 mg/dL (8.5-10.1); Chloride 103 mmol/L (98-107); EST Glomerular Filtration Rate 112 mL/min (>60); Est Glom Filt Rate - Afr Amer 135 mL/min (>60); Glucose 124 mg/dL (74-106); Lipase 98 U/L (73-393); Potassium 3.9 mmol/L (3.5-5.1); Protein, Total 8.3 g/dL (6.4-8.2); Sodium Level 136 mmol/L (136-145)
--- NOTE | 2019-04-30 15:56 | ED.VIS.GI ---
History of Present Illness Chief Complaint: Abd Pain Informant: Patient - Abdominal Pain/Flank Pain Onset: Days - 4 Context: Gradual Onset Timing: Continuous, Waxes and wanes Quality: Aching Location: RUQ Current Severity: Moderate Maximum Severity: Moderate Worsened by: Food Relieved by: Nothing - Nausea/Vomiting/Emesis GI Symptom: Nausea, Vomiting Quality: Nonbilious. Negative for: Blood streaks, Coffee ground, Hematemesis Severity: Moderate - Diarrhea/Melena/Hematochezia GI Symptom: Diarrhea. Negative for: Melena, Hematochezia Stool Quality: Watery - yellow. Negative for: Black, Maroon, KORTNEY per rectum Severity: Severe Associated Symptoms: Negative for: Dysuria, Frequency, Hematuria, Urgency Narrative: Patient was sent by PCP for further work-up for possible pancreatitis given her symptoms, history of diabetes, and triglycerides over 4000. No history of prior abdominal surgeries. Recent Illness/Hospitalization: No - Past Medical History (1) IDDM (insulin dependent diabetes mellitus) Status: Chronic (2) Hypertriglyceridemia Status: Chronic Past Medical History - Allergies and Home Meds Allergies/Adverse Reactions: Allergies metformin Adverse Reaction (Verified 04/30/19 14:09) Upset Stomach Primary Care Physician: Bahman Gilliam MD [Primary Care Provider] - Surgical History: no surgical history Smoking Status: Never smoker Alcohol: Occasional - none in past several weeks Drugs: None Review of Systems General: Reports: Malaise. Denies: Chills, Fever, Sweats Eyes: Denies: Visual changes - bilaterally, Diplopia ENT: Denies: Rhinorrhea, Sore throat Cardiovascular: Denies: Chest pain, Palpitations Respiratory: Denies: Dyspnea, Cough, Dyspnea on exertion Gastrointestinal: Reports: Abdominal pain, Nausea, Vomiting, Diarrhea. Denies: Melena, Hematochezia Genitourinary: Denies: Dysuria, Hematuria, Frequency Musculoskeletal: Denies: Back pain, Extremity Pain Skin: Denies: Rash, Wounds Neurological: Denies: Headache, Weakness, Numbness Physical Exam Vital Signs/Narrative: Vital Signs Temp Pulse Resp BP Pulse Ox 04/30/19 14:05 97.8 F 98 16 146/87 H 98 Inital Vital Signs reviewed: Yes General: Well nourished, Well developed, No Acute Distress Head: Normocephalic, Atraumatic Eyes: Perrl, EOMI ENT: Moist mucous membranes, No rhinorrhea Neck: Supple, Nontender Cardiovascular: Regular rate, Regular rhythm, No murmurs, Normal S1, Normal S2 Respiratory: No distress, CTA bilaterally, Chest nontender Abdomen: Soft, Nondistended, Normal bowel sounds, Tender - RUQ > epigastric. Negative for: Guarding, Rebound tenderness, Cavanaugh's sign Back: Nontender, Normal Inspection. Negative for: CVA tenderness Extremities: Nontender, No edema. Negative for: Calf Tenderness Skin: Normal color, No rash, No Trauma Neurological: Alert, Oriented x3, Cranial nerves II-XII grossly intact, Normal Strength, Normal Sensation Psychological: Normal affect, Normal Mood Diagnostic/Tx/Re-eval Impressions Gallbladder Ultrasound 04/30/19 16:04 IMPRESSION: Liver is enlarged with fatty infiltration. No gallstones. Electronically Signed: Herbert Thapa MD at 16:48 EDT , Service support , 04/30/19 16:04 US Gallbladder [Gallbladder] [US] Stat Laboratory Results 04/30/19 04/30/19 04/30/19 15:00 15:00 15:00 WBC 9.2 RBC 5.25 Hgb 13.9 Hct 42.6 MCV 81.1 MCH 26.5 L MCHC 32.6 RDW Std Deviation 39.8 RDW Coeff of Mohini 13.4 Plt Count 302 MPV 10.1 Immature Gran % (Auto) 0.300 Neut % (Auto) 58.5 Lymph % (Auto) 32.9 [place] % (Auto) 6.5 Eos % (Auto) 1.4 Baso % (Auto) 0.4 Absolute Neuts (auto) 5.4 Absolute Lymphs (auto) 3.02 Absolute Nucleated RBC 0.00 Nucleated RBC % 0 Sodium 136 Potassium 3.9 Chloride 103 Carbon Dioxide 27.0 Anion Gap 6 BUN 11 Creatinine 0.70 Estim Creat Clear Calc 114.40 Est GFR (MDRD) Af Amer 135 Est GFR (MDRD) Non-Af 112 BUN/Creatinine Ratio 15.7 Glucose 124 H Calcium 9.6 Total Bilirubin 0.30 AST 55 H ALT 83 H Alkaline Phosphatase 55 Total Protein 8.3 H Albumin 4.3 Globulin 4.0 Albumin/Globulin Ratio 1.1 Lipase 98 Serum , Qual NEGATIVE Urine Color Urine Clarity Urine pH Ur Specific Sparks Urine Protein Urine Glucose (UA) Urine Ketones Urine Occult Blood Urine Nitrite Urine Bilirubin Urine Urobilinogen Ur Leukocyte Esterase Urine RBC Urine WBC Ur Squamous Epith Cells Urine Bacteria Urine Mucus 04/30/19 16:00 WBC RBC Hgb Hct MCV MCH MCHC RDW Std Deviation RDW Coeff of Mohini Plt Count MPV Immature Gran % (Auto) Neut % (Auto) Lymph % (Auto) [place] % (Auto) Eos % (Auto) Baso % (Auto) Absolute Neuts (auto) Absolute Lymphs (auto) Absolute Nucleated RBC Nucleated RBC % Sodium Potassium Chloride Carbon Dioxide Anion Gap BUN Creatinine Estim Creat Clear Calc Est GFR (MDRD) Af Amer Est GFR (MDRD) Non-Af BUN/Creatinine Ratio Glucose Calcium Total Bilirubin AST ALT Alkaline Phosphatase Total Protein Albumin Globulin Albumin/Globulin Ratio Lipase Serum , Qual Urine Color Straw Urine Clarity Clear Urine pH 6.0 Ur Specific Sparks 1.010 Urine Protein Negative Urine Glucose (UA) Normal Urine Ketones Negative Urine Occult Blood Negative Urine Nitrite Negative Urine Bilirubin Negative Urine Urobilinogen Normal Ur Leukocyte Esterase 25 H Urine RBC 0 SEEN Urine WBC 0-5 SEEN Ur Squamous Epith Cells 0-5 SEEN Urine Bacteria RARE Urine Mucus 0 SEEN - Medical Decision Making Patient is improved after morphine, IV fluids, Zofran. Initially was going to order a CT of the abdomen/pelvis with contrast, but while we were awaiting for her test to return negative, the rest of her labs returned showing no leukocytosis, and no evidence of elevated liver enzymes or pancreatitis, with a lipase in the normal range of 98. Therefore, given the location of her pain in the right upper quadrant, I thought that a gallbladder ultrasound might yield more information than a CT. It was normal and showed no stones, she does have a fatty liver, which I think is incidental and probably not causing her symptoms. I think she is stable to be discharged home. Certainly, chronic acalculous cholecystitis is possible and not able to be ruled out, she may need a HIDA scan for persistent symptoms. However while discussing all of this, she states she was told she may have gastroparesis. Certainly, her symptoms may be GI in etiology as well. She used to be on Nexium but decided to discontinue it about a year ago. For now, she is safe to be discharged home, will prescribe her Protonix, Bentyl, Reglan, and advised to use Mylanta/subsalicylate as needed for recurrent symptoms. She is comfortable with this plan will follow-up with her doctor, I have placed a call to him if available to discuss the findings since he sent her. ED Disposition - Plan for ED Patient: Disposition: Home or Assisted Living Diagnosis: RUQ abdominal pain, Vomiting Instructions: GASTRITIS vs. ULCER, ABDOMINAL PAIN, Unknown Cause, (Female) Prescriptions: Dicyclomine HCl [Bentyl] 20 mg PO Q4H PRN #20 cap PRN Reason: abdominal pain Transmission Status: Pending to [id number] Pantoprazole Sodium [Protonix] 40 mg PO DAILY #14 tab Transmission Status: Pending to [id number] Metoclopramide [Reglan] 10 mg PO Q6H PRN #20 tab PRN Reason: Nausea/Vomiting [id number] Referrals: Bahman Gilliam MD [Primary Care Provider] - 3-5 Days if not improving
--- NOTE | 2019-04-30 16:04 | US_ITS ---
STUDY: ABDOMINAL ULTRASOUND - RIGHT UPPER QUADRANT REASON FOR VISIT: Female, 23 years old. Right upper quadrant pain TECHNIQUE: Ultrasound evaluation of the right upper quadrant was performed with real-time and static perkins-scale imaging. TECHNICAL QUALITY: Adequate. COMPARISON: March 01, 2019 FINDINGS: Liver: The liver measures 22.9 cm. There is increased echogenicity consistent with fatty infiltration. The bile ducts are within normal limits. There is hepatic color flow. The direction of portal flow is hepatopetal. There is no demonstrated mass lesion. Gallbladder: Normal distended gallbladder. The gallbladder wall measures 2 mm. There is a negative sonographic Cavanaugh's sign. There is no pericholecystic fluid. There are no gallstones. Common Bile Duct (C.B.D.): The common bile duct measures 3 mm. Pancreas: Normal size of the head, body and tail of the pancreas. There is normal echogenicity of the pancreas. There is no demonstrated pancreatic mass or cyst. Right Kidney: Normal size of the right kidney. The right kidney measures 12.1 cm. Normal renal cortex. The right cortex measures 1.5 cm. There is no demonstrated renal mass or cyst. There is no right hydronephrosis. US/Gallbladder IMPRESSION: Liver is enlarged with fatty infiltration. No gallstones. Electronically Signed: Herbert Thapa MD at 16:48 EDT , Service support ,
[2019-04-30] MEDS: 0.9% Normal Saline 1,000 ML 999 ML IV (16:06)
[2019-04-30] MEDS: Ondansetron 4 MG/2 ML Vial IV (16:06)
[2019-04-30 16:14] LABS: Mucous, Urine 0 SEEN /hpf (<or=2+); Red Blood Cells-Urine 0 SEEN /hpf (0-5)
[2019-04-30 16:35] LABS: Color, Urine Straw (Yellow); Glucose, Dipstick Normal (Normal); Ketone-Dipstick Negative (Negative); Leukocyte Esterase-Dipstick 25 /ul (Negative); Nitrite-Dipstick Negative (Negative); Occult Blood-Urine Negative /ul (Negative); Protein-Dipstick Negative (Negative); Urine Bilirubin Dipstick Negative (Negative); Urine Clarity Clear (Clear); Urine Urobilinogen Normal (Normal)
[2019-04-30 16:40] LABS: Internal QC Validated? YES +Cl - CLEAR BKGD; Pregnancy, Serum, hCG Quali. NEGATIVE Negative
[2019-04-30 16:42] LABS: Bacteria RARE /hpf (None Seen); Squamous Epithelial Cells - UA 0-5 SEEN /hpf (5-10); White Blood Cells 0-5 SEEN /hpf (0-5)
[2019-04-30 16:54] VITALS: BMI 31.8
[2019-04-30] MEDS: Dicyclomine 10 MG Capsule 20 MG PO (17:53)
[2019-04-30] MEDS: Mag Hydrox/Al Hydrox/Simeth 30 ML UDC PO (17:53)
[2019-04-30] MEDS: Pantoprazole Sodium 40 MG Tablet PO (18:01)
[2019-04-30 18:06] VITALS: BP 134/95; PULSE 82; RESP 16; O2SAT 99
== END 2019-04-30 18:08 | disposition home or self-care (01) ==
PROVIDERS: Emergency Provider Emergency Medicine; Family Provider Family Medicine; PCP Family Medicine
DX: R10.11 Right upper quadrant pain (principal); R11.2 Nausea with vomiting, unspecified; R19.7 Diarrhea, unspecified; K76.0 Fatty (change of) liver, not elsewhere classified; E11.9 Type 2 diabetes mellitus without complications; E78.1 Pure hyperglyceridemia; Z79.4 Long term (current) use of insulin; Z79.899 Other long term (current) drug therapy
CPT/HCPCS: 76705; 80053; 81001; 83690; 84703; 85025; 96361; 96374; 99284; J7030; A4216; J2405

== ENCOUNTER → 2019-05-08 12:56 | Outpatient (CLI) | payer BC, SELFPAY ==
[2019-04-30 14:05] VITALS: BMI 31.7
--- NOTE | 2019-05-08 13:00 | NM_ITS ---
CLINICAL: 23-year-old female with history of right upper quadrant abdominal pain and nausea. RADIONUCLIDE HEPATOBILIARY SCINTIGRAPHY COMPARISON: Abdominal ultrasound report 04/30/2019 FINDINGS: Following the intravenous administration of 5.3 mCi of 99m Tc Mebrofenin, hepatobiliary images reveal: 1. Relatively prompt and homogeneous radiopharmaceutical concentration is noted by a normal sized liver. No parenchymal defects are identified. 2. Gallbladder activity is identified at 45 minutes post radiopharmaceutical administration. 3. Small intestinal tract is observed at 10 minutes following tracer injection. 4. Washout of the radiopharmaceutical by the hepatic parenchyma appears qualitatively normal. 5. There is scintigraphic evidence of pre-CCK duodenal gastric reflux. Cholecystokinin (0.02 ug/kg) was administered intravenously over a 30-minute period. The post CCK gallbladder ejection fraction calculated at 20 minutes following Cholecystokinin administration was noted to be 47.0 % (normal greater than 35%). During 30 minutes of post CCK imaging, there is no scintigraphic evidence of reflux of the radiotracer into the common hepatic duct or refilling of the gallbladder. There is scintigraphic evidence of continued post CCK duodenal gastric reflux. NM/Hepatobilliary Img w/Pharm Int IMPRESSION: 1. A gallbladder ejection fraction calculated to be greater than 35% following the administration of Cholecystokinin makes the probability of functional hepatobiliary disease (gallbladder and/or sphincter of Oddi dyskinesia) and/or organic hepatobiliary disease (chronic acalculous cholecystitis and/or cystic duct syndrome) to be low. (Aida Rabago et al, Journal of Nuclear Medicine 32:1695, 1990). 2. There is scintigraphic evidence of pre-post CCK duodenal-gastric reflux as described above. (Sherry et al, Nucl Med Luisa Valerie Press pg. 35, 1980). Electronically Signed: Miguelangel Elias DO at 23:44 EDT Tel , Service support ,
== END ==
LOC: NM 12:57
PROVIDERS: Family Provider Family Medicine; PCP Family Medicine; Referring Provider Family Medicine; Visit Provider Family Medicine
DX: R10.11 Right upper quadrant pain (principal)
CPT/HCPCS: 78227; A9537; J2805

== ENCOUNTER → 2019-07-26 07:49 | Outpatient (CLI) | payer BC, SELFPAY ==
[2019-07-26 09:01] LABS: Estradiol 29.8 pg/mL; Free T3 3.1 pg/mL (2.18-3.98); Prolactin 7.1 ng/mL; T4 Free Direct 0.95 ng/dL (0.76-1.46)
[2019-07-26 09:02] LABS: Progesterone Level 0.43 ng/mL (See Comment)
[2019-07-27 04:06] LABS: DHEA Sulfate 372.2 ug/dL (110.0-431.7)
[2019-07-29 12:38] LABS: Sex Hormone-binding Globulin 11.2 nmol/L (24.6-122.0)
[2019-07-31 13:51] LABS: 17-Hydroxyprogesterone 105 ng/dL (.)
== END ==
PROVIDERS: Family Provider Family Medicine; PCP Family Medicine; Referring Provider Obstetrics & Gynecology; Visit Provider Obstetrics & Gynecology
DX: N92.6 Irregular menstruation, unspecified (principal)
CPT/HCPCS: 36415; 82533; 82627; 82670; 83001; 83498; 84144; 84146; 84270; 84403; 84439; 84443; 84481; 82626

== ENCOUNTER → 2019-08-24 07:57 | Outpatient (CLI) | payer BC, SELFPAY ==
[2019-08-24 09:28] LABS: Hemoglobin A1c 8.7 % (4.2-6.3)
[2019-08-24 09:40] LABS: AST(SGOT) 84 U/L (15-37); Alanine Aminotransfer ALT/SGPT 111 U/L (13-56); Albumin, Serum 3.9 g/dL (3.2-5.0); Alkaline Phosphatase 69 U/L (45-117); Anion Gap 11 (5-15); BUN 9 mg/dL (7-18); BUN/Creat Ratio 10.7 RATIO (10-20); CPK Total, Creatine Kinase 61 U/L (26-192); Calcium,Total 8.7 mg/dL (8.5-10.1); Chloride 105 mmol/L (98-107); Cholesterol 157 mg/dL (200); Creatinine, Serum 0.84 mg/dL (0.55-1.02); EST Glomerular Filtration Rate 91 mL/min (>60); Est Glom Filt Rate - Afr Amer 110 mL/min (>60); Glucose 209 mg/dL (74-106); High Density Lipoprotein 24 mg/dL; Protein, Total 7.9 g/dL (6.4-8.2); Sodium Level 141 mmol/L (136-145); Thyroid Stim Hormone (TSH) 1.87 uIU/mL (0.358-3.74); Triglycerides 467 mg/dL
[2019-08-26 09:50] LABS: Vitamin D,25 Hydroxy 34.6 ng/mL (29.95-100.01)
== END ==
PROVIDERS: Family Provider Family Medicine; PCP Family Medicine; Referring Provider Internal Medicine Endocrinology, Diabetes & Metabolism; Visit Provider Internal Medicine Endocrinology, Diabetes & Metabolism
DX: E11.65 Type 2 diabetes mellitus with hyperglycemia (principal); E78.2 Mixed hyperlipidemia; E04.1 Nontoxic single thyroid nodule; E55.9 Vitamin D deficiency, unspecified; K76.0 Fatty (change of) liver, not elsewhere classified; K90.9 Intestinal malabsorption, unspecified
CPT/HCPCS: 36415; 80053; 80061; 82306; 82550; 83036; 84443

== ENCOUNTER → 2019-10-17 09:11 | Outpatient (CLI) | payer BC, SELFPAY | PROVIDERS: Family Provider Family Medicine; PCP Family Medicine; Referring Provider Family Medicine; Visit Provider Family Medicine | DX: J02.9 Acute pharyngitis, unspecified (principal) | CPT/HCPCS: 87070 ==

== ENCOUNTER → 2019-12-31 14:21 | Outpatient (CLI) | payer BC, SELFPAY ==
[2019-12-31 15:43] LABS: Hematocrit 40.3 % (37-47); Hemoglobin 13.1 g/dL (12.0-15.0); Mean Corp Hgb Conc 32.5 g/dL (32-36); Mean Corpuscular Hgb 25.9 pg (27.0-32.0); Mean Corpuscular Volume 79.6 fL (81-99); Mean Platelet Vol. 10.6 fl (6.2-12.0); Platelet Count 284 K/mm3 (150-450); RBC Distribution Width CV 13.3 % (11.6-14.6); RBC Distribution Width SD 37.7 fl (35.1-43.9); Red Blood Count 5.06 M/mm3 (4.2-5.4)
[2019-12-31 16:02] LABS: Ferritin 89 ng/mL (8-252); Iron 60 ug/dL (50-170); Iron Binding Capacity,Total 424 ug/dL (250-450); PERCENT IRON SATURATION 14.2 % (15.0-55.0)
== END ==
PROVIDERS: PCP Family Medicine; Visit Provider Obstetrics & Gynecology
DX: N92.1 Excessive and frequent menstruation with irregular cycle (principal)
CPT/HCPCS: 36415; 82728; 83540; 83550; 85027

== ENCOUNTER → 2020-05-26 07:19 | Outpatient (CLI) | payer OTHER, SELFPAY ==
[2020-05-26 08:19] LABS: Hemoglobin A1c 8.5 % (3.8-5.6)
[2020-05-26 08:46] LABS: AST(SGOT) 25 U/L (15-37); Alanine Aminotransfer ALT/SGPT 41 U/L (13-56); Alkaline Phosphatase 60 U/L (45-117); Anion Gap 11 (5-15); BUN 16 mg/dL (7-18); BUN/Creat Ratio 17.8 RATIO (10-20); Calcium,Total 8.6 mg/dL (8.5-10.1); Chloride 101 mmol/L (98-107); Cholesterol 187 mg/dL (200); EST Glomerular Filtration Rate 83 mL/min (>60); Est Glom Filt Rate - Afr Amer 101 mL/min (>60); Free T3 3.2 pg/mL (2.18-3.98); Globulin 4.1 g/dL (2.2-4.2); Glucose 235 mg/dL (74-106); High Density Lipoprotein 26 mg/dL; Protein, Total 8.1 g/dL (6.4-8.2); Sodium Level 136 mmol/L (136-145); T4 Free Direct 1.06 ng/dL (0.76-1.46); Thyroid Stim Hormone (TSH) 2.12 uIU/mL (0.358-3.74); Triglycerides 1379 mg/dL
[2020-05-26 11:07] LABS: Vitamin D,25 Hydroxy 24.9 ng/mL
== END ==
LOC: LAB 07:21
PROVIDERS: PCP Family Medicine; Referring Provider Internal Medicine Endocrinology, Diabetes & Metabolism; Visit Provider Internal Medicine Endocrinology, Diabetes & Metabolism
DX: E11.65 Type 2 diabetes mellitus with hyperglycemia (principal); E55.9 Vitamin D deficiency, unspecified
CPT/HCPCS: 36415; 80053; 80061; 82306; 83036; 84439; 84443; 84481

== ENCOUNTER → 2020-06-23 06:57 | Outpatient (CLI) | payer OTHER, SELFPAY ==
[2020-06-23 08:21] LABS: AST(SGOT) 35 U/L (15-37); Alanine Aminotransfer ALT/SGPT 47 U/L (13-56); Albumin, Serum 4.3 g/dL (3.2-5.0); Alkaline Phosphatase 50 U/L (45-117); Anion Gap 10 (5-15); BUN 21 mg/dL (7-18); Calcium,Total 9.2 mg/dL (8.5-10.1); Chloride 105 mmol/L (98-107); EST Glomerular Filtration Rate 73 mL/min (>60); Est Glom Filt Rate - Afr Amer 89 mL/min (>60); Follicle Stimulating Hormone 2.9 mIU/mL; Globulin 4.1 g/dL (2.2-4.2); Glucose 183 mg/dL (74-106); Luteinizing Hormone 12.3 mIU/mL; Prolactin 12.4 ng/mL; Protein, Total 8.4 g/dL (6.4-8.2); Sodium Level 137 mmol/L (136-145)
[2020-06-23 09:53] LABS: Insulin 40.8 mU/L (2.6-37.6)
[2020-06-25 20:08] LABS: C-Peptide 6.8 ng/mL (1.1-4.4); Estrogen, Total, Serum 205 pg/mL (.)
[2020-06-26 15:30] LABS: 17-Hydroxyprogesterone 157 ng/dL (.)
== END ==
PROVIDERS: PCP Family Medicine; Referring Provider Internal Medicine Endocrinology, Diabetes & Metabolism; Visit Provider Internal Medicine Endocrinology, Diabetes & Metabolism
DX: E11.65 Type 2 diabetes mellitus with hyperglycemia (principal); E78.5 Hyperlipidemia, unspecified; E55.9 Vitamin D deficiency, unspecified; E28.2 Polycystic ovarian syndrome; I10 Essential (primary) hypertension; K31.84 Gastroparesis
CPT/HCPCS: 36415; 80053; 82024; 82043; 82533; 82570; 82627; 82672; 83001; 83002; 83498; 83525; 84146; 84403; 84681; 82626

== ENCOUNTER → 2020-07-01 06:52 | Outpatient (CLI) | payer OTHER, SELFPAY | PROVIDERS: PCP Family Medicine; Referring Provider Internal Medicine Endocrinology, Diabetes & Metabolism; Visit Provider Internal Medicine Endocrinology, Diabetes & Metabolism | DX: E11.65 Type 2 diabetes mellitus with hyperglycemia (principal); E28.2 Polycystic ovarian syndrome | CPT/HCPCS: 36415; 82533 ==

== ENCOUNTER → 2020-09-24 17:12 | Outpatient (CLI) | payer OTHER, SELFPAY ==
[2020-09-24 18:46] LABS: Anion Gap 11 (5-15); BUN 12 mg/dL (7-18); BUN/Creat Ratio 12.2 RATIO (10-20); Calcium,Total 8.5 mg/dL (8.5-10.1); Chloride 99 mmol/L (98-107); Creatinine, Serum 0.98 mg/dL (0.55-1.02); EST Glomerular Filtration Rate 75 mL/min (>60); Est Glom Filt Rate - Afr Amer 90 mL/min (>60); Glucose 418 mg/dL (74-106); Sodium Level 130 mmol/L (136-145)
== END ==
LOC: MFPLAB 17:13
PROVIDERS: PCP Family Medicine; Referring Provider Family Medicine; Visit Provider Family Medicine
DX: E87.1 Hypo-osmolality and hyponatremia (principal)
CPT/HCPCS: 36415; 80048

== ENCOUNTER → 2020-10-07 11:47 | Outpatient (CLI) | payer OTHER, SELFPAY ==
--- NOTE | 2020-10-07 11:52 | NM_ITS ---
CLINICAL: 24-year-old diabetic female with history of clinical gastroparesis-abdominal pain. SEMI-SOLID PHASE 99m Tc SULFUR COLLOID GASTRIC EMPTYING STUDY COMPARISON: Previous semisolid phase gastric emptying study dated 10/05/2018 FINDINGS: The patient was administered 1.0 mCi of 99m Tc sulfur colloid mixed with oatmeal and consumed per os. Image acquisitions in the anterior posterior projections for a total of 60 minutes. There is prompt visualization of the stomach. There is no gastroesophageal reflux identified. First order kinetics are maintained throughout the duration of the acquisitions. The T ? linear fit was calculated to be 139.45 minutes compared to 78.44 minutes reported on the previous examination dated 10/05/2018, (Normal: 12-56 minutes). NM/Gastric Emptying Study IMPRESSION: 1. ABNORMAL 99m Tc sulfur colloid semi-solid phase (oatmeal) gastric emptying imaging examination. A. There is delayed semi-solid phase gastric emptying compared to normal controls with maintained first order kinetics throughout all components of the examination. (Mony et al, J Nucl Med Tech 38: 186, 2010). B. Overall compared to the previous semisolid phase gastric emptying study dated 10/05/2018, there is interval deterioration in the calculated T ? emptying as defined above. Electronically Signed: Miguelangel Elias DO at 23:25 EST Tel , Service support ,
== END ==
PROVIDERS: PCP Family Medicine; Referring Provider Family Medicine; Visit Provider Family Medicine
DX: K31.84 Gastroparesis (principal)
CPT/HCPCS: 78264; A9541

== ENCOUNTER → 2020-11-04 11:44 | Outpatient (CLI) | payer OTHER, SELFPAY ==
[2020-11-05 08:25] LABS: Rubella IgG Reactive (Nonreactive)
[2020-11-06 20:36] LABS: Mumps Antibody,IgG 99.8 AU/mL (Immune >10.9); Rubeola IgG Ab 33.5 AU/mL (Immune >16.4)
== END ==
PROVIDERS: PCP Family Medicine; Referring Provider Family Medicine; Visit Provider Family Medicine
DX: Z02.1 Encounter for pre-employment examination (principal)
CPT/HCPCS: 36415; 86735; 86762; 86765

== ENCOUNTER → 2021-01-25 12:25 | Outpatient (CLI) | payer OTHER, SELFPAY ==
[2021-01-25 15:18] LABS: Absolute Lymphocyte Count 2.28 X10^3/uL (0.83-4.51); Absolute Neutrophil Count 8.6 X10^3/uL (2.0-7.7); Basophil# 0.04 X10^3/uL; Basophil% 0.3 % (0-1); Eosinophil# 0.06 X10^3/uL; Eosinophils% 0.5 % (0-5); Lymphocyte # 2.28 X10^3/ul (4.0); Lymphocyte % 19.5 % (19-41); Mean Corpuscular Volume 79.1 fL (81-99); Mean Platelet Vol. 10.8 fl (6.2-12.0); NRBC Flagged by Analyzer 0 % (0-5); Neutrophil # 8.61 X10^3/uL (2.7-7.7); Neutrophil % 73.4 % (47-70); POSITIVE COUNT YES; Platelet Count 317 K/mm3 (150-450); RBC Distribution Width CV 13.7 % (11.6-14.6); RBC Distribution Width SD 39.6 fl (35.1-43.9); Red Blood Count 4.93 M/mm3 (4.2-5.4); White Blood Count 11.7 K/mm3 (4.4-11.0)
[2021-01-25 15:50] LABS: ALB/GLOB Ratio 0.8 RATIO (0.9-2.4); Anion Gap 9 (5-15); BUN 8 mg/dL (7-18); BUN/Creat Ratio 12.7 RATIO (10-20); Chloride 93 mmol/L (98-107); Creatinine, Serum 0.63 mg/dL (0.55-1.02); EST Glomerular Filtration Rate 124 mL/min (>60); Est Glom Filt Rate - Afr Amer 150 mL/min (>60); Globulin 4.7 g/dL (2.2-4.2); Glucose 290 mg/dL (74-106); Lipase 361 U/L (73-393); Potassium 3.8 mmol/L (3.5-5.1); Protein, Total 8.4 g/dL (6.4-8.2); Sodium Level 126 mmol/L (136-145)
[2021-01-25 17:32] LABS: AST(SGOT) 49 U/L (15-37); Alanine Aminotransfer ALT/SGPT 57 U/L (13-56); Albumin, Serum 3.9 g/dL (3.2-5.0); Alkaline Phosphatase 71 U/L (45-117); Calcium,Total 8.8 mg/dL (8.5-10.1)
[2021-01-25 20:29] LABS: Hemoglobin 14.5 g/dL (12.0-15.0)
[2021-01-25 20:31] LABS: Mean Corp Hgb Conc 37.2 g/dL (32-36); Mean Corpuscular Hgb 29.4 pg (27.0-32.0)
== END ==
LOC: MTLAB 12:27
PROVIDERS: Nurse Practitioner Family; PCP Family Medicine; Referring Provider Family Medicine; Visit Provider Family Medicine
DX: R10.11 Right upper quadrant pain (principal)
CPT/HCPCS: 36415; 80053; 83036; 83690; 85025

== ENCOUNTER 2025-04-14 17:39 | Emergency (ER) | payer OTHER, SELFPAY ==
[2025-04-14 17:41] VITALS: BP 135/76; PULSE 122; RESP 16; TEMP 37.2; O2SAT 99; BMI 31.4
--- NOTE | 2025-04-14 17:56 | ED.RN ---
CME TO TRIAGE DESK AD SAD SHE WAS LEAVING. DIDNT WANT TO WAIT
== END 2025-04-14 17:55 | disposition left against medical advice (07) ==
LOC: ED 18:01
PROVIDERS: PCP Family Medicine
DX: Z53.21 Procedure and treatment not carried out due to patient leaving prior to being seen by health care provider (principal)